=== PATIENT | female | born 1965 | race Caucasian/White ===

== ENCOUNTER 2019-06-24 16:17 | Emergency (ER) | payer MEDICAID ==
[~2019-06-24] VITALS: Ht 152.4 cm; Wt 54.4 kg
[2019-06-24 16:49] VITALS: BP 135/78
[2019-06-24] MEDS ORDERED: ALBUTEROL SULFATE INH 18 GM HFA.AER.AD IH STA (18:25)
[2019-06-24] MEDS ORDERED: IBUPROFEN 600 MG TABLET PO ONE ×2 (18:27→18:30)
[2019-06-24] MEDS ORDERED: ALBUTEROL FS 2.5 MG/3 ML VIAL.NEB ONE (18:40)
[2019-06-24] MEDS ORDERED: ALBUTEROL FS 2.5 MG/0.5 ML VIAL.NEB NEB ONE (19:00)
== END 2019-06-24 19:16 | disposition home or self-care (01) ==
LOC: ER 16:21
DX: J11.1 Influenza due to unidentified influenza virus with other respiratory manifestations (principal)
CPT/HCPCS: 71046

== ENCOUNTER 2020-11-24 21:36 | Emergency (ER) | payer MEDICAID ==
[~2020-11-24] VITALS: Ht 162.6 cm; Wt 54.4 kg
[2020-11-24] MEDS ORDERED: KETOROLAC TROMETHAMINE INJ 30 MG/ML VIAL ONE (22:27)
[2020-11-24] MEDS ORDERED: HYDROCODONE/APAP 5/325MG TABLET PO ONE (22:30)
[2020-11-24] MEDS ORDERED: KETOROLAC TROMETHAMINE INJ 30 MG/ML VIAL IM ONE (22:30)
--- NOTE | 2020-11-24 22:32 | NUR ---
PT STATED SHE DID NOT WANT TO TAKE THE NORCO.
[2020-11-24 22:42] LABS: BILIRUBIN,URINE Negative (NEGATIVE); COLOR,URINE YELLOW (YELLOW); LEUKOCYTE ESTERASE ,URINE Trace (NEGATIVE); NITRITE, URINE Negative (NEGATIVE); PROTEIN,URINE 30 mg/dl (NEGATIVE); UGLUCOSE Negative (NEGATIVE); UROBILINOGEN,URINE 0.2 EU/dL (0.2)
[2020-11-24 23:12] LABS: BACTERIA,URINE Few /HPF (None Seen); RBC,URINE 21-50 /HPF (0-2)
[2020-11-24 23:13] LABS: SQUAMOUS EPITHELIAL CELL,UR Few /HPF (None Seen)
[2020-11-24] MEDS ORDERED: CEPH500C2 PO (23:33)
[2020-11-24] MEDS ORDERED: IBUP-1957 PO (23:33)
[2020-11-24] MEDS ORDERED: LIDOCAINE /MPF 1% VIAL 5 ML VIAL ONE (23:57)
[2020-11-24] MEDS ORDERED: CEFTRIAXONE 1 G VIAL ONE (23:58)
[2020-11-25] MEDS ORDERED: CEFTRIAXONE 1 G VIAL IM ONE
--- NOTE | 2020-11-25 00:21 | NUR ---
Patient discharged to home in stable condition. Written and verbal after care instructions given. Patient verbalizes understanding of instruction and RX. vss.
[2020-11-25 00:24] VITALS: BP 123/72
== END 2020-11-25 00:24 | disposition home or self-care (01) ==
LOC: ER 21:40
DX: N39.0 Urinary tract infection, site not specified (principal)
CPT/HCPCS: 76770; 81001; 87086; 96372 ×2; 99284; J0696; J1885; J3490

== ENCOUNTER 2021-03-13 20:55 | Emergency (ER) | payer MEDICAID ==
[~2021-03-13] VITALS: Ht 147.3 cm; Wt 54.4 kg
[~2021-03-13 20:55] MED LIST: CEPH500C2 PO; IBUP-1957 PO
--- NOTE | 2021-03-13 21:30 | NUR ---
PT BIBS FOR C/O R SIDED BODY PAIN X 2 DAYS. PT ALERT AND ORIENTED X4. AMBULATORY WITH NON LABORED BREATHING.
--- NOTE | 2021-03-13 21:50 | NUR ---
LINE ESTABLISHED AND BLOOD TAKEN AND SENT TO LAB.
--- NOTE | 2021-03-13 22:05 | NUR ---
EMT @ BED SIDE FOR EKG.
[2021-03-13 22:19] LABS: BASOPHILS % (AUTO) 0.7 % (0.0-2.0); EOSINOPHILS % (AUTO) 4.2 % (0.0-6.0); HEMATOCRIT 37 % (33-45); HEMOGLOBIN 12.6 g/dL (11.5-14.8); LYMPHOCYTES # (AUTO) 1.9 K/uL (0.8-4.8); LYMPHOCYTES % (AUTO) 29.9 % (20.0-44.0); MEAN CORPUSCULAR HGB CONC 34 g/dl (31.0-36.0); MEAN CORPUSCULAR VOLUME 85 fL (82-100); MONOCYTES # (AUTO) 0.4 K/uL (0.1-1.30); MONOCYTES % (AUTO) 6.3 % (2.0-12.0); NEUTROPHILS # (AUTO) 3.7 K/uL (1.8-8.9); NEUTROPHILS % (AUTO) 58.9 % (43.0-81.0); PLATELET COUNT (AUTO) 258 K/uL (150-450); RED BLOOD CELL COUNT(AUTO) 4.38 MIL/uL (4.0-5.2); WHITE BLOOD COUNT (AUTO) 6.4 K/uL (4.3-11.0)
[2021-03-13 22:36] LABS: CALCIUM, SERUM 8.7 mg/dL (8.5-10.1); CARBON DIOXIDE 33 mmol/L (21-32); CHLORIDE 105 mmol/L (98-107); CREATININE 0.9 mg/dL (0.6-1.3); GLUCOSE 100 mg/dL (74-106); POTASSIUM 3.7 mmol/L (3.5-5.1); SODIUM SERUM 141 mmol/L (136-145); UREA NITROGEN, BLOOD 17 mg/dL (7-18)
[2021-03-13] MEDS ORDERED: METH4TAB3 PO (23:20)
[2021-03-13] MEDS ORDERED: METH750T3 PO (23:20)
[2021-03-13] MEDS ORDERED: IBUP-1955 PO (23:20)
[2021-03-13] MEDS ORDERED: KETOROLAC TROMETHAMINE INJ 30 MG/ML VIAL ONE (23:24)
--- NOTE | 2021-03-13 23:29 | NUR ---
Patient discharged to home in stable condition. Written and verbal after care instructions given. Patient verbalizes understanding of instruction. RX given
[2021-03-13 23:30] VITALS: BP 125/70
[2021-03-13] MEDS ORDERED: KETOROLAC TROMETHAMINE INJ 30 MG/ML VIAL IV ONE (23:30)
== END 2021-03-13 23:30 | disposition home or self-care (01) ==
LOC: ER 20:55
DX: M54.12 Radiculopathy, cervical region (principal); M62.838 Other muscle spasm; R51.9 Headache, unspecified; E78.5 Hyperlipidemia, unspecified; Z79.899 Other long term (current) drug therapy
CPT/HCPCS: 36415; 70450; 71045; 80048; 84484; 85025; 93005; 96374; 99285; J1885

== ENCOUNTER 2023-03-31 23:00 | Emergency (ER) | payer MEDICAID, OTHER ==
[~2023-03-31] VITALS: Ht 147.3 cm; Wt 56.2 kg
[~2023-03-31 23:00] MED LIST changes: +IBUP-1955 PO; +METH4TAB3 PO; +METH750T3 PO
[2023-03-31 23:19] VITALS: BP 151/69; TEMP 98.4; O2SAT 100
[2023-03-31] MEDS ORDERED: CYCL5TAB PO (23:29)
[2023-03-31] MEDS ORDERED: CYCLOBENZAPRINE 10 MG TABLET ONE (23:29)
[2023-03-31] MEDS ORDERED: KETOROLAC TROMETHAMINE INJ 30 MG/ML VIAL ONE (23:29)
[2023-03-31] MEDS ORDERED: KETOROLAC TROMETHAMINE INJ 60 MG/2 ML VIAL IM ONE (23:30)
[2023-03-31] MEDS ORDERED: CYCLOBENZAPRINE 10 MG TABLET PO ONE (23:30)
== END 2023-03-31 23:42 | disposition home or self-care (01) ==
LOC: ER 23:06
DX: M54.6 Pain in thoracic spine (principal); M54.50 Low back pain, unspecified; Z79.899 Other long term (current) drug therapy
CPT/HCPCS: 99283; 96372; J1885

== ENCOUNTER 2024-03-22 20:30 | Emergency (ER) | payer MEDICAID ==
[~2024-03-22] VITALS: Ht 152.4 cm; Wt 56.8 kg
[~2024-03-22 20:30] MED LIST changes: +CYCL5TAB PO
[2024-03-22 20:43] VITALS: TEMP 98.6
[2024-03-22] MEDS ORDERED: VALA10002 PO (20:56)
[2024-03-22] MEDS ORDERED: PRED50TA PO (20:56)
[2024-03-22 21:07] VITALS: BP 135/81; O2SAT 100
== END 2024-03-22 21:08 | disposition home or self-care (01) ==
LOC: ER 20:35
DX: G51.0 Bell's palsy (principal)